=== PATIENT | male | born 1955 | race Caucasian/White ===

== ENCOUNTER 2020-07-13 14:07 | Emergency (ER) | payer MEDICARE, OTHER ==
[~2020-07-13] VITALS: Ht 185.5 cm; Wt 95.3 kg
--- NOTE | 2020-07-13 14:25 | Diagnostic Imaging Report ---
INDICATION: Chest pain. COMPARISON: None. FINDINGS: Single frontal view of the chest demonstrates normal heart size and pulmonary vascularity. The lungs are well aerated and clear. No large pleural effusion or pneumothorax is seen. The visualized osseous structures show no acute abnormalities. IMPRESSION: 1. No acute cardiopulmonary process. Dictated by: Dictated on workstation # [id number]
[2020-07-13 14:33] LABS: HEMATOCRIT 42 % (40-54); HEMOGLOBIN 14.5 G/DL (13.3-17.7); LYMPHOCYTES % (AUTO) 36 % (12-44); MEAN CORPUSCULAR HEMOGLOBIN 30 PG (25-34); MEAN CORPUSCULAR HGB CONC 34 G/DL (32-36); MEAN CORPUSCULAR VOLUME 86 FL (80-99); MEAN PLATELET VOLUME 9.5 FL (7.4-10.4); NEUTROPHILS % (AUTO) 50 % (42-75); PLATELET COUNT 217 10^3/uL (130-400); WHITE BLOOD COUNT 9.7 10^3/uL (4.3-11.0)
[2020-07-13] MEDS ORDERED: meTOprolol 5 MG/5 ML (LOPRESSOR) VIAL IV STA (14:33)
[2020-07-13] MEDS ORDERED: ASPIRIN 81 MG CHEW (CHILDREN'S ASA) PO STA (14:33)
--- NOTE | 2020-07-13 14:33 | ED Chest Pain ---
General Chief Complaint: Chest Pain Stated Complaint: CHEST PAIN; LT ARM PAIN Source: patient History of Present Illness Date Seen by Provider: Jul 13, 2020 Time Seen by Provider: 14:09 Initial Comments 65 yo male presenting with complaints of left sided cramping pain that has been off and on for a few weeks. Today since about 1230 he has had constant pain but it also radiates into left side of neck, jaw, left arm to elbow. This part was new for him so he decided to come be seen and evaluated. He has had similar symptoms in the past and had an extensive cardiac work up that was negative. He did walk on a treadmill for 45 minutes at 3.7 mph this morning and had no pain or symptoms then. He states that he does feel the pain increased with a deep breath. He did try taking ibuprofen with no relief of his pain. He denies any nausea or vomiting. He does not feel short of breath. He has had no sweating with this. He tried to come in to see his primary care doctor about it but they were unable to see him so he was referred to the emergency department. Denies any known injury. He states that he does lift weights but has not been lifting any weights since the cramping pain first started a few weeks ago. Allergies and Home Medications Allergies Coded Allergies: Penicillins (Verified Allergy, Unknown, 07/13/20) Patient Home Medication List Home Medication List Reviewed: Yes Review of Systems Review of Systems Constitutional: No chills, No diaphoresis, No dizziness, No fever EENTM: No Symptoms Reported Respiratory: No Symptoms Reported Cardiovascular: See HPI Gastrointestinal: No Symptoms Reported Genitourinary: No Symptoms Reported Musculoskeletal: see HPI Skin: No change in color, No rash Psychiatric/Neurological: Denies Headache; Tingling (left neck, jaw and into left arm with pain in chest today) Endocrine: No Symptoms Reported Hematologic/Lymphatic: No Symptoms Reported Past Rmtsyjp-[id number]-Xggkow Hx Past Med/Social Hx: Reviewed Nursing Past Med/Soc Hx Past Medical History Cardiac: Yes High Cholesterol, Hypertension Physical Exam Vital Signs Vital Signs - First Documented 07/13/20 07/13/20 14:15 14:16 Temp 36.7 Pulse 80 Resp 16 B/P (MAP) 167/89 (115) Pulse Ox 100 O2 Delivery Room Air Capillary Refill : Height, Weight, BMI Height: '" Weight: lbs. oz. kg; BMI Method: General Appearance: No Apparent Distress, WD/WN HEENT: PERRL/EOMI, Pharynx Normal Neck: Full Range of Motion, Normal Inspection, Non Tender, Supple; No Carotid Bruit Respiratory: Chest Non Tender, Lungs Clear, Normal Breath Sounds, No Accessory Muscle Use, No Respiratory Distress Cardiovascular: Regular Rate, Rhythm, No Murmur, Normal Peripheral Pulses Gastrointestinal: Normal Bowel Sounds, No Pulsatile Mass, Non Tender, Soft Rectal: Deferred Extremity: Normal Capillary Refill, No Calf Tenderness, No Pedal Edema Neurologic/Psychiatric: Alert, Oriented x3, No Motor/Sensory Deficits, Normal Mood/Affect, computer applications engineer II-XII Norm as Tested Skin: Normal Color, Warm/Dry Progress/Results/Core Measures Results/Orders Lab Results Laboratory Tests Test 07/13/20 14:19 07/13/20 15:15 Range/Units White Blood Count 9.7 4.3-11.0 10^3/uL Red Blood Count 4.89 4.35-5.85 10^6/uL Hemoglobin 14.5 13.3-17.7 G/DL Hematocrit 42 40-54 % Mean Corpuscular Volume 86 80-99 FL Mean Corpuscular Hemoglobin 30 25-34 PG Mean Corpuscular Hemoglobin Concent 34 32-36 G/DL Red Cell Distribution Width 12.1 10.0-14.5 % Platelet Count 217 130-400 10^3/uL Mean Platelet Volume 9.5 7.4-10.4 FL Immature Granulocyte % (Auto) 0 % Neutrophils (%) (Auto) 50 42-75 % Lymphocytes (%) (Auto) 36 12-44 % Monocytes (%) (Auto) 10 0-12 % Eosinophils (%) (Auto) 3 0-10 % Basophils (%) (Auto) 1 0-10 % Neutrophils # (Auto) 4.8 1.8-7.8 X 10^3 Lymphocytes # (Auto) 3.5 1.0-4.0 X 10^3 Monocytes # (Auto) 1.0 0.0-1.0 X 10^3 Eosinophils # (Auto) 0.3 0.0-0.3 10^3/uL Basophils # (Auto) 0.1 0.0-0.1 10^3/uL Immature Granulocyte # (Auto) 0.0 0.0-0.1 10^3/uL Prothrombin Time 13.4 12.2-14.7 SEC INR Comment 1.0 0.8-1.4 Activated Partial Thromboplast Time 28 24-35 SEC Sodium Level 139 135-145 MMOL/L Potassium Level 3.6 3.6-5.0 MMOL/L Chloride Level 100 98-107 MMOL/L Carbon Dioxide Level 27 21-32 MMOL/L Anion Gap 12 5-14 MMOL/L Blood Urea Nitrogen 10 7-18 MG/DL Creatinine 0.94 0.60-1.30 MG/DL Estimat Glomerular Filtration Rate > 60 BUN/Creatinine Ratio 11 Glucose Level 96 70-105 MG/DL Calcium Level 9.6 8.5-10.1 MG/DL Corrected Calcium 8.5-10.1 MG/DL Magnesium Level 2.2 1.6-2.4 MG/DL Total Bilirubin 0.3 0.1-1.0 MG/DL Aspartate Amino Transf (AST/SGOT) 28 5-34 U/L Alanine Aminotransferase (ALT/SGPT) 27 0-55 U/L Alkaline Phosphatase 85 40-136 U/L Troponin I < 0.30 < 0.30 <0.30 NG/ML Pro-B-Type Natriuretic Peptide 24.7 <75.0 PG/ML Total Protein 7.6 6.4-8.2 GM/DL Albumin 4.6 H 3.2-4.5 GM/DL Lipase 31 8-78 U/L My Orders Orders - MINOR HOGUE MD Cbc With Automated Diff (07/13/20 14:11) Magnesium (07/13/20 14:11) Chest 1 View Ap/Pa Only (07/13/20 14:11) Ekg Tracing (07/13/20 14:11) Comprehensive Metabolic Panel (07/13/20 14:11) Protime With Inr (07/13/20 14:11) Partial Thromboplastin Time (07/13/20 14:11) O2 (07/13/20 14:11) Monitor-Rhythm Ecg Trace Only (07/13/20 14:11) Ed Iv/Invasive Line Start (07/13/20 14:11) Lipase (07/13/20 14:11) Troponin I Fs (07/13/20 14:11) Probnp Fs (07/13/20 14:11) Aspirin Chewable Tablet (Baby Aspirin Ch (07/13/20 14:33) Metoprolol Tartrate Injection (Lopressor (07/13/20 14:33) Ct Angio Chest W (07/13/20 14:34) Iohexol Injection (Omnipaque 350 Mg/Ml 1 (07/13/20 15:00) Received Contrast (Hold Metformin- Contr (07/13/20 15:00) Sodium Chloride Flush (Catheter Flush Sy (07/13/20 15:00) Ns (Ivpb) (Sodium Chloride 0.9% Ivpb Bag (07/13/20 15:00) Troponin I Fs (07/13/20 16:12) Medications Given in ED Current Medications Medications Dose Ordered Sig/Cira Route Start Time Stop Time Status Last Admin Dose Admin Iohexol 100 ml ONCE ONCE IV 07/13/20 15:00 07/13/20 15:01 DC 07/13/20 15:05 100 ML Sodium Chloride 10 ml NEEDED PRN IV 07/13/20 15:00 07/13/20 16:54 DC 07/13/20 15:05 10 ML Sodium Chloride 100 ml ONCE ONCE IV 07/13/20 15:00 07/13/20 15:01 DC 07/13/20 15:05 100 ML Vital Signs/I&O 07/13/20 07/13/20 07/13/20 14:15 14:16 16:49 Temp 36.7 Pulse 80 66 Resp 16 16 B/P (MAP) 167/89 (115) 122/74 Pulse Ox 100 99 O2 Delivery Room Air Room Air Room Air Progress Progress Note #1: Progress Note Obtain basic labs as well as electrocardiogram and chest x-ray. Placed him on cardiac telemetry monitoring. His initial telemetry monitoring his heart rate in the 70s and sinus rhythm without ectopy. We will give him 324 mg of aspirin and a single 5 mg dose of metoprolol. If he is continuing to have pain nitroglycerin or narcotics may be added on. If his chest x-ray does not show any acute abnormality since his pain also goes between his shoulder blades and up into his neck a CT angiogram of his chest would be added on to evaluate for possible aortic disease. Differential diagnosis includes myocardial infarction, aortic dissection, pleuritic chest pain, musculoskeletal chest wall pain, esophageal spasms Progress Note #2: Progress Note Electrocardiogram does not show any acute ST elevation. His chest x-ray did not show any acute significant abnormality. With his pain radiating to his back I will add on a CT angiogram to evaluate his aorta. Progress Note #3: Time: 15:[address] angiogram does not demonstrate any acute significant abnormality. He has no pulmonary embolism or acute abnormality of his aorta. Labs are all stable without acute significant abnormality and he has no elevation in his troponin or BNP. Will discuss results with the patient and see if his pain is resolved. Discussed with him options of admission for further work-up in the hospital vs repeat enzymes in ED and workup as outpt. Patient states his pain resolved after aspirin and metoprolol. Will get 2nd Troponin and if still negative plan to do further work up as outpatient. If he has recurrent symptoms or Troponin climbs then admit for work up at [facility]. Progress Note #4: Time: 16:40 Progress Note Repeat troponin is still negative. Patient was still feeling no pain at this point. Vitals continue to be stable. Discharged home to follow-up with Dr. Bergeron for outpatient work-up. Counseled on follow-up and return precautions. Reassuring that he can do 45 minutes of activity on a treadmill without having any pain as well as having 2 sets of negative enzymes after having constant pain for several hours. Initial ECG Impression Date: Jul 13, 2020 Initial ECG Impression Time: 14:09 Initial ECG Rate: 78 Initial ECG Rhythm: Normal Sinus Initial ECG Comparisson: No Previous ECG Available Comment Normal sinus rhythm with a heart rate of 78 bpm. MI interval 191 ms. QT interval 385 ms with a QTc interval of 439 ms. There is no acute ST elevation. There is no prior tracing available for comparison. Diagnostic Imaging Diagonstic Imaging: Xray Plain Films/CT/US/NM/MRI: chest Comments NAME: KATE DAWKINS [facility] REC#: [id number] PT STATUS: REG ER : 1955 PHYSICIAN: MINOR HOGUE MD ADMIT DATE: 07/13/20/ER FS Draft Date of Exam:07/13/20 CHEST 1 VIEW AP/PA ONLY INDICATION: Chest pain. COMPARISON: None. FINDINGS: Single frontal view of the chest demonstrates normal heart size and pulmonary vascularity. The lungs are well aerated and clear. No large pleural effusion or pneumothorax is seen. The visualized osseous structures show no acute abnormalities. IMPRESSION: 1. No acute cardiopulmonary process. Dictated on workstation # [id number] Dict: 07/13/20 1423 Trans: 07/13/20 1424 [id number] Interpreted by: QUE RUIZ MD Electronically signed by: [place] Imaging: CT Plain Films/CT/US/NM/MRI: chest Comments [facility] [place], [place] NAME: KATE DAWKINS [facility] REC#: [id number] PT STATUS: REG ER : 1955 PHYSICIAN: MINOR HOGUE MD ADMIT DATE: 07/13/20/ER FS Draft Date of Exam:07/13/20 CT ANGIO CHEST W PROCEDURE: CT angiography of the chest with contrast. TECHNIQUE: Multiple contiguous axial images were obtained through the chest after uneventful bolus administration of intravenous contrast. 3D reconstructed CTA MIP acquisitions were also performed. Auto Exposure Controls were utilized during the CT exam to meet ALARA standards for radiation dose reduction. INDICATION: Left-sided chest pain radiating into the neck, jaw, and arms. FINDINGS: The pulmonary arterial branches are well opacified and widely patent. The thoracic aorta is patent and nonaneurysmal and showed no mural hemorrhage, dissection, nor rupture. There is no pleural or pericardial effusion or hemorrhage. The heart size and configuration are normal. There is no intracardiac chamber mass or thrombus. There is no evidence for pneumonia. No findings of pulmonary edema. No lung mass or thoracic lymphadenopathy. There was no acute or suspicious soft tissue or osseous chest wall pathology. The thoracic inlet and visualized lower neck and supraclavicular fossa appeared unremarkable. There is no stranding or infiltration of the mediastinal fat. The visualized upper abdomen is nonacute. IMPRESSION: Negative for PE or other acute abnormalities. Dictated on workstation # [id number] Dict: 07/13/20 1519 Trans: 07/13/20 1525 [id number] [id number] Interpreted by: MAME CUI Electronically signed by: Departure Impression Primary Impression: Left-sided chest pain Disposition: 01 HOME, SELF-CARE Condition: Stable Departure-Patient Inst. Decision time for Depature: 16:44 Referrals: RUFINO BERGERON MD (PCP/Family) Primary Care Physician Patient Instructions: Chest Pain, Adult ED Add. Discharge Instructions: Your tests today have looked ok from a heart and aorta and lung standpoint. No sign of acute heart attack on your tests today. Check back with Dr. Bergeron and the clinic and they may want you to do further stress testing or evaluation. If you have worsening symptoms or more problems/concerns return or seek medical care for repeat evaluation. All discharge instructions reviewed with patient and/or family. Voiced understanding. MINOR HOGUE MD Jul 13, 2020 14:33
[2020-07-13 14:34] LABS: BASOPHILS # (AUTO) 0.1 10^3/uL (0.0-0.1); BASOPHILS % (AUTO) 1 % (0-10); EOSINOPHILS # (AUTO) 0.3 10^3/uL (0.0-0.3); EOSINOPHILS % (AUTO) 3 % (0-10); LYMPHOCYTES # (AUTO) 3.5 X 10^3 (1.0-4.0); MONOCYTES % (AUTO) 10 % (0-12); NEUTROPHILS # (AUTO) 4.8 X 10^3 (1.8-7.8)
[2020-07-13 14:47] LABS: PROTHROMBIN TIME PATIENT 13.4 SEC (12.2-14.7)
[2020-07-13 14:56] LABS: ALANINE AMINOTRANSFERASE 27 U/L (0-55); ALBUMIN 4.6 GM/DL (3.2-4.5); ALKALINE PHOSPHATASE 85 U/L (40-136); BILIRUBIN,TOTAL 0.3 MG/DL (0.1-1.0); BUN/CREATININE RATIO 11; CALCIUM 9.6 MG/DL (8.5-10.1); CARBON DIOXIDE 27 MMOL/L (21-32); CHLORIDE 100 MMOL/L (98-107); CREATININE SERUM 0.94 MG/DL (0.60-1.30); GFR ESTIMATED > 60; GLUCOSE 96 MG/DL (70-105); LIPASE 31 U/L (8-78); MAGNESIUM 2.2 MG/DL (1.6-2.4); POTASSIUM 3.6 MMOL/L (3.6-5.0); SODIUM 139 MMOL/L (135-145); TOTAL PROTEIN 7.6 GM/DL (6.4-8.2)
[2020-07-13] MEDS ORDERED: IOHEXOL 350 MG/ML 100 ML (OMNIPAQUE 350) VIAL IV ONE (15:00)
[2020-07-13] MEDS ORDERED: CATHETER FLUSH 10 ML SYR IV PRN (15:00)
[2020-07-13] MEDS ORDERED: NS 100 ML (IVPB) BAG IV ONE (15:00)
[2020-07-13] MEDS ORDERED: HOLD METFORMIN - RECEIVED CONTRAST 20 ML VIAL IV SCH (15:00)
--- NOTE | 2020-07-13 15:25 | Diagnostic Imaging Report ---
PROCEDURE: CT angiography of the chest with contrast. TECHNIQUE: Multiple contiguous axial images were obtained through the chest after uneventful bolus administration of intravenous contrast. 3D reconstructed CTA MIP acquisitions were also performed. Auto Exposure Controls were utilized during the CT exam to meet ALARA standards for radiation dose reduction. INDICATION: Left-sided chest pain radiating into the neck, jaw, and arms. FINDINGS: The pulmonary arterial branches are well opacified and widely patent. The thoracic aorta is patent and nonaneurysmal and showed no mural hemorrhage, dissection, nor rupture. There is no pleural or pericardial effusion or hemorrhage. The heart size and configuration are normal. There is no intracardiac chamber mass or thrombus. There is no evidence for pneumonia. No findings of pulmonary edema. No lung mass or thoracic lymphadenopathy. There was no acute or suspicious soft tissue or osseous chest wall pathology. The thoracic inlet and visualized lower neck and supraclavicular fossa appeared unremarkable. There is no stranding or infiltration of the mediastinal fat. The visualized upper abdomen is nonacute. IMPRESSION: Negative for PE or other acute abnormalities. Dictated by: Dictated on workstation # [id number]
[2020-07-13 16:49] VITALS: BP 122/74
== END 2020-07-13 16:53 | disposition home or self-care (01) ==
LOC: ER FS 14:10
DX: R07.9 Chest pain, unspecified (principal); Z88.0 Allergy status to penicillin
CPT/HCPCS: 36415; 71045; 71275; 80053; 83690; 83735; 83880; 84484; 85025; 85610; 85730; 93005; 93041